=== PATIENT | male | born 1935 | race Caucasian/White ===

== ENCOUNTER 2017-10-05 10:39 | Day surgery (SDC) | payer MEDICARE, OTHER ==
[~2017-10-05] VITALS: Ht 175.3 cm; Wt 77.3 kg
[2017-10-05 10:59] VITALS: BP 115/74
[2017-10-05] MEDS ORDERED: Vitamin B6 PO (11:23)
[2017-10-05] MEDS ORDERED: FOLI0.4T2 PO (11:23)
[2017-10-05] MEDS ORDERED: CYAN250013 PO (11:23)
[2017-10-05] MEDS ORDERED: CALC-112 PO (11:23)
[2017-10-05] MEDS ORDERED: ASPI-650 PO (11:23)
[2017-10-05] MEDS ORDERED: GLUC1TAB27 PO (11:23)
[2017-10-05] MEDS ORDERED: FINA5TAB PO (11:23)
[2017-10-05] MEDS ORDERED: ALFU10TA PO (11:23)
[2017-10-05] MEDS ORDERED: CELE200C PO (11:23)
[2017-10-05 11:40] LABS: BASOPHILS # (AUTO) 0.02 x10^3/uL (0-0.1); BASOPHILS % (AUTO) 0 % (0-1); EOSINOPHILS # (AUTO) 0.13 x10^3/uL (0-0.4); EOSINOPHILS % (AUTO) 3 % (1-7); LYMPHOCYTES # (AUTO) 1.12 x10^3/uL (1-3.4); LYMPHOCYTES % (AUTO) 23 % (22-44); MD NO; MEAN CORPUSCULAR HEMOGLOBIN 32.2 pg (27.5-34.5); MEAN CORPUSCULAR HGB CONC 33.7 g/dL (33.2-36.2); MEAN CORPUSCULAR VOLUME 95.5 fL (81-97); MEAN PLATELET VOLUME 7.8 fL (7.4-10.4); MONOCYTES # (AUTO) 0.44 x10^3/uL (0.2-0.8); MONOCYTES % (AUTO) 9 % (2-9); NEUTROPHILS # (AUTO) 3.14 x10^3/uL (1.8-6.8); NEUTROPHILS % (AUTO) 65 % (42-75); PLATELET COUNT 160 x10^3/uL (130-400); RED BLOOD COUNT 4.57 x10^6/uL (4.38-5.82); RED CELL DISTRIBUTION WIDTH 13.2 % (9.4-14.8)
[2017-10-05 11:50] LABS: ANION GAP 6 mmol/L (5-15); CALCIUM 8.3 mg/dL (8.5-10.1); CHLORIDE 112 mmol/L (98-107); CREATININE 0.97 mg/dL (0.7-1.3)
[2017-10-05] MEDS ORDERED: TICAGRELOR 90 MG TABLET ONE (12:11)
[2017-10-05] MEDS ORDERED: FENTANYL PF 100 MCG/2ML ONE (12:11)
[2017-10-05] MEDS ORDERED: BIVALIRUDIN 250 MG ONE (12:12)
[2017-10-05] MEDS ORDERED: VERAPAMIL 2.5 MG/ML, 2ML ONE (12:12)
[2017-10-05] MEDS ORDERED: LIDOCAINE 2%, 20ML ONE (12:12)
[2017-10-05] MEDS ORDERED: MIDAZOLAM 1 MG/ML, 2ML ONE (12:13)
[2017-10-05] MEDS ORDERED: HEPARIN 1,000 UNITS/ML, 10ML ONE (12:14)
[2017-10-05] MEDS ORDERED: ZOLPIDEM 5MG TABLET PO PRN (13:00)
[2017-10-05] MEDS ORDERED: SODIUM CHLORIDE 0.9% 1,000 ML IV SCH (13:00)
[2017-10-06] MEDS ORDERED: TEMPLATE NON-FORMULARY MED. (Gluc Su/Chondro Su A/Vit C/Mn** (Glucosamine Chondroitin Tab PO SCH (09:00)
[2017-10-06] MEDS ORDERED: ASPIRIN 325 MG TABLET EC PO SCH (09:00)
[2017-10-06] MEDS ORDERED: FINASTERIDE 5 MG TABLET PO SCH (09:00)
[2017-10-06] MEDS ORDERED: VITAMIN B6 PO SCH (09:00)
[2017-10-06] MEDS ORDERED: FOLIC ACID PO SCH (09:00)
[2017-10-06] MEDS ORDERED: CYANOCOBALAMIN 1000 MG PO SCH (09:00)
[2017-10-06] MEDS ORDERED: VITAMIN D3 PO SCH (09:00)
[2017-10-06] MEDS ORDERED: TEMPLATE NON-FORMULARY MED. (Alfuzosin Hcl** (Uroxatral**) 10 MG) PO SCH (09:00)
[2017-10-06] MEDS ORDERED: CALCIUM CARBONATE PO SCH (09:00)
[2017-10-06] MEDS ORDERED: [UNRECOGNIZED DRUG - OTHER] PO SCH (09:00)
== END 2017-10-05 16:50 | disposition home or self-care (01) ==
LOC: CACL 10:39
PROVIDERS: ATTEND Internal Medicine Cardiovascular Disease
DX: I25.10 Atherosclerotic heart disease of native coronary artery without angina pectoris (principal); E78.5 Hyperlipidemia, unspecified; I45.0 Right fascicular block; Z79.82 Long term (current) use of aspirin; Z88.1 Allergy status to other antibiotic agents
CPT/HCPCS: 36415; 80048; 85025; 93458; 99156; 99157; C1760; C1894; J1644; J2250; J3010; J3490; Q9967; J0583